=== PATIENT | male | born 1985 | race Caucasian/White ===

== ENCOUNTER 2016-08-06 16:24 | Emergency (ER) | payer OTHER ==
[2016-08-06 16:29] VITALS: TEMP 98; O2SAT 100
--- NOTE | 2016-08-06 16:54 | C.PDOC ---
History Of Present Illness 30 y/o male presents to ED with complaint of intermittent diarrhea for 1 week. Patient reports he has been drinking Gatorade and using home remedies with no relief. He notes he initially had abdominal pain which has since resolved. He states stool was watery, now soft and clumpy, no blood. Denies fever, chills, vomiting, urinary symptoms, or other complaints at this time. Time Seen by Provider: 08/06/16 16:37 Chief Complaint (Nursing): GI Problem History Per: Patient History/Exam Limitations: no limitations Onset/Duration Of Symptoms: Days, Intermittent Episodes Current Symptoms Are (Timing): Still Present Recent travel outside of the [place]: No Past Medical History Reviewed: Historical Data, Nursing Documentation, Vital Signs Vital Signs: Last Vital Signs Temp 98 F 08/06/16 16:27 Pulse 72 08/06/16 17:06 Resp 18 08/06/16 17:06 BP 124/71 08/06/16 17:06 Pulse Ox 100 08/06/16 17:06 - Medical History PMH: Anxiety, Depression Family History: States: Diabetes - Social History Hx Alcohol Use: No Hx Substance Use: No Review Of Systems Except As Marked, All Systems Reviewed And Found Negative. Constitutional: Negative for: Fever, Chills Respiratory: Negative for: Cough Gastrointestinal: Positive for: Diarrhea. Negative for: Vomiting, Abdominal Pain, Melena, Hematochezia, Rectal Pain Genitourinary: Negative for: Dysuria, Frequency Musculoskeletal: Negative for: Back Pain Skin: Negative for: Rash Neurological: Negative for: Headache, Dizziness Physical Exam - Physical Exam Appears: Non-toxic, No Acute Distress Skin: Normal Color, Warm, Dry Head: Atraumatic, Normacephalic Eye(s): bilateral: Normal Inspection Oral Mucosa: Moist Neck: Normal ROM Chest: Symmetrical Cardiovascular: Rhythm Regular Respiratory: Normal Breath Sounds, No Rales, No Rhonchi, No Wheezing Gastrointestinal/Abdominal: Soft, No Tenderness, No Mass, No Distention, No Guarding, No Rebound Back: Normal Inspection, No CVA Tenderness Extremity: Normal ROM Neurological/Psych: Oriented x3, Normal Speech, Normal Cognition Gait: Steady ED Course And Treatment O2 Sat by Pulse Oximetry: 100 (RA) Pulse Ox Interpretation: Normal Medical Decision Making Medical Decision Makin y.o male with complaints of intermittent nonbloody diarrhea. On exam patient appears well nontoxic and in no distress. Abdomen was soft and nontender. No signs of dehydration. Advise patient to continue fluids and try bulking foods to help with stool. Disposition Counseled Patient/Family Regarding: Diagnosis, Need For Followup, Rx Given - Disposition Disposition: HOME/ ROUTINE Disposition Time: 16:53 Condition: STABLE Additional Instructions: Drink fluids to prevent dehydration. Take Zofran as prescribed. Try low-fat diet with increase in fluids such as sport drink, gelatin. Try soup, rice, bread , crackers, cereal, bananas to help with diarrhea. Avoid high sugar foods or dairy Prescriptions: Loperamide [Loperamide HCl] 2 mg PO PRN PRN #12 cap PRN Reason: Diarrhea Instructions: Gastroenteritis (DC) - POA Present On Arrival: None - Clinical Impression Clinical Impression: Diarrhea - PA / CUSTOMER ENGAGEMENT ANALYST / Resident Statement MD/DO has reviewed & agrees with the documentation as recorded. - Scribe Statement The provider has reviewed the documentation as recorded by the Ness Gardner Provider Scribe Attestation: All medical record entries made by the Ness were at my direction and personally dictated by me. I have reviewed the chart and agree that the record accurately reflects my personal performance of the history, physical exam, medical decision making, and the department course for this patient. I have also personally directed, reviewed, and agree with the discharge instructions and disposition.
[2016-08-06 17:06] VITALS: BP 124/71; PULSE 72; RESP 18
== END 2016-08-06 17:07 | disposition home or self-care (01) ==
LOC: C.ER 16:24
DX: R19.7 Diarrhea, unspecified (principal)